=== PATIENT | female | born 1955 | race Caucasian/White ===

== ENCOUNTER → 2017-08-09 | Outpatient (CLI) | payer BC, OTHER ==
[~2017-08-09] MED LIST: CLIMARA1 EAC2 TOP; MAGOX 400400 MG PO; PROGESTERONE100 MG PO; SPIRONOLACTONE100 M1 PO; ULTRA FLORA PL1 EACH PO; VITAMIN B122500 MCG SUBLING; VITAMIN D32000 UNI1 PO
--- NOTE | ~2017-08-09 | P ---
[facility] [place] [address] PROCEDURE REPORT Name: NICHELLE HERNANDEZ Shyam Room #: REG KAMERON Driver#: [id number] Admission: 08/09/17 Attend Phys: Navin Wong Discharge: Date of : 55 Report #: [id number] THIS REPORT FOR: //name// CC: Navin Sosa DATE OF SERVICE: 08/09/2017 PROCEDURE PERFORMED: Colonoscopy with APC cautery. 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 Her hemoglobin remains in the 12 range; however, her ferritin has been low. She has been transfused with IV iron. Plan is for repeat colonoscopy with APC cautery today. DESCRIPTION OF PROCEDURE: The risks and benefits of the procedure were explained to the patient, those risks including but not limited to bleeding, perforation, the risk of sedation. She understood these risks and gave informed consent. Sedation was given using propofol per anesthesia. Next, a digital rectal exam was initially performed, which was normal. Next, using a standard Fujinon colonoscope, the scope was placed in the patient's anus and advanced under direct vision to the cecum. The overall prep was excellent. In the cecum no significant AVMs were seen. There were 2 small areas of possible AVMs, no bleeding. I did proceed with treating these areas with APC cautery. The terminal ileum was intubated and normal. The ascending, transverse, descending and sigmoid colon were all normal. The rectal mucosa was normal. On retroflexion, small nonbleeding internal hemorrhoids were noted. The scope was then withdrawn and the procedure terminated. The patient tolerated the procedure well. IMPRESSION: 1. Possible, 2 small AVMs within the cecum. Both areas cauterized with APC cautery. 2. Small internal hemorrhoids. 3. Otherwise, normal colonoscopy. RECOMMENDATIONS: 1. Observe the patient post-procedure. 2. Continue to monitor hemoglobin and ferritin levels. Thank you for allowing me to participate in her care. [address] [address] PROCEDURE REPORT Name: NICHELLE HERNANDEZ Shyam Room #: REG [facility] Neisha#: [id number] Admission: 08/09/17 Attend Phys: Navin Wong Discharge: Date of : 55 Report #: [id number] She does not have a primary. <ELECTRONICALLY SIGNED> By: Navin Hopson MD 08/10/17 0916 [id number] Navin Hopson MD /nt
== END | disposition home or self-care (01) ==
LOC: GI 08:38
DX: K63.89 Other specified diseases of intestine (principal); K64.8 Other hemorrhoids; Z98.890 Other specified postprocedural states; Z88.0 Allergy status to penicillin

== ENCOUNTER → 2017-08-20 | Outpatient (CLI) | payer BC, OTHER ==
[2017-08-20 12:30] VITALS: BP 122/68
[2017-08-20 13:27] VITALS: BP 122/68
[2017-08-20 13:40] VITALS: BP 119/66
== END ==
LOC: OPONC 06:17
DX: D50.9 Iron deficiency anemia, unspecified (principal); Z88.0 Allergy status to penicillin
CPT/HCPCS: 95000

== ENCOUNTER → 2017-08-27 | Outpatient (CLI) | payer BC, OTHER ==
[2017-08-27 14:45] VITALS: BP 117/68
[2017-08-27 15:42] VITALS: BP 111/66
== END ==
LOC: OPONC 03:55
DX: D50.9 Iron deficiency anemia, unspecified (principal)
CPT/HCPCS: 95000

== ENCOUNTER → 2017-09-04 | Outpatient (CLI) | payer BC, OTHER ==
[2017-09-04 09:40] VITALS: BP 110/65
== END ==
LOC: OPONC 01:02
DX: D50.9 Iron deficiency anemia, unspecified (principal)
CPT/HCPCS: 95000

== ENCOUNTER → 2017-09-13 | Outpatient (CLI) | payer BC, OTHER ==
[2017-09-13 08:40] VITALS: BP 109/50
[2017-09-13 09:42] VITALS: BP 114/62
== END ==
LOC: OPONC 02:04 → EDSTATUS 07:55 → OPONC 14:02
DX: D50.9 Iron deficiency anemia, unspecified (principal)
CPT/HCPCS: 95000

== ENCOUNTER → 2017-09-23 | Outpatient (CLI) | payer BC, OTHER ==
[2017-09-23 08:50] VITALS: BP 110/67
[2017-09-23 10:00] VITALS: BP 111/67
== END ==
LOC: OPONC 09-16 00:25
DX: D50.9 Iron deficiency anemia, unspecified (principal)
CPT/HCPCS: 95000

== ENCOUNTER → 2019-10-30 | Outpatient (CLI) | payer OTHER ==
[~2019-10-30] MED LIST changes: +IRON325 M1 PO
[2019-10-30 11:45] VITALS: BP 121/65
[2019-10-30 13:15] VITALS: BP 110/62
--- NOTE | 2019-10-30 14:18 | NUR ---
IN FOR 1ST DOSE OF INJECTAFER FOR IRON DEFICIENCY ANEMIA. PATIENT STATED IS SOB WITH ACTIVITY. ADMISSION HISTORY AND ASSESSMENT COMPLETED. MEDICATION RECONCILED. TOLERATED INFUSION WITHOUT INCIDENT. OBSERVED FOR 30 MINUTES. POST VITAL SIGNS GOOD. REMOVED IV AND DISMISSED IN GOOD CONDITION. TO RETURN NEXT SATURDAY FOR 2ND INFUSION.
== END ==
LOC: OPONC 11:18
DX: Q27.33 Arteriovenous malformation of digestive system vessel (principal)
CPT/HCPCS: 95000

== ENCOUNTER → 2019-11-06 | Outpatient (CLI) | payer OTHER ==
[2019-11-06 12:00] VITALS: BP 132/75
[2019-11-06 12:15] VITALS: BP 130/70
[2019-11-06 13:00] VITALS: BP 114/72
--- NOTE | 2019-11-06 13:48 | NUR ---
PT IN FOR 2ND DOSE OF INJECTAFER, PT LEFT CLINIC WITH NO ADVERSE REACTIONS.
== END ==
LOC: OPONC 10:15
DX: D50.9 Iron deficiency anemia, unspecified (principal)
CPT/HCPCS: 95000; 95113